=== PATIENT | female | born 1955 | race Caucasian/White ===

== ENCOUNTER → 2016-07-08 | Day surgery (SDC) | payer MEDICARE, OTHER ==
[~2016-07-08] VITALS: Ht 162.6 cm; Wt 90.7 kg
[~2016-07-08] MED LIST: AMBIEN10 MG PO; BUSPIRONE HCL15 MG PO; COUMADIN4 MG PO; CYMBALTA60 MG PO; FERROUS SULFAT325 MG PO; LIPITOR20 MG PO; NEURONTIN600 MG PO; NICOTINE PATCH1 EAC2 TOP; PHENERGAN25 M1 PO; PROAIR HFA8.5 GM IH; PROTONIX40 MG PO; REQUIP4 MG PO; SPIRIVA18 MCG IH; STOOL SOFTENER240 MG PO; SYMBICORT 16010.2 GM IH; SYNTHROID137 MCG PO; VISTARIL50 MG PO; ZANAFLEX4 MG PO; ZESTRIL20 MG PO; ZOFRAN4 MG PO
== END | disposition home or self-care (01) ==
LOC: SDC 06:50
DX: M16.11 Unilateral primary osteoarthritis, right hip (principal); M79.7 Fibromyalgia; G89.29 Other chronic pain; M54.5 Low back pain; G25.81 Restless legs syndrome; M48.00 Spinal stenosis, site unspecified; E07.9 Disorder of thyroid, unspecified; K21.9 Gastro-esophageal reflux disease without esophagitis; J43.9 Emphysema, unspecified; I10 Essential (primary) hypertension; J44.9 Chronic obstructive pulmonary disease, unspecified; M41.9 Scoliosis, unspecified; F17.210 Nicotine dependence, cigarettes, uncomplicated; Z98.51 Tubal ligation status; Z87.11 Personal history of peptic ulcer disease; Z90.49 Acquired absence of other specified parts of digestive tract; Z96.642 Presence of left artificial hip joint; Z79.891 Long term (current) use of opiate analgesic; Z79.899 Other long term (current) drug therapy
CPT/HCPCS: J1040; J2704